=== PATIENT | female | born 1945 | race Caucasian/White ===

== ENCOUNTER 2024-02-05 13:50 | Emergency (ER) | payer OTHER ==
[2024-02-05 13:58] VITALS: BP 162/66; PULSE 74; TEMP 97.7; BMI 30.4
[2024-02-05 15:23] LABS: BASO % 0.5 % (0-2.0); EOS % 2.8 % (0-4.5); HEMOGLOBIN 13.2 GM/dL (10.7-15.3); LYMPH % 24.7 % (8-40); MCH 28.3 pg (25.7-33.7); MEAN CELL VOLUME 85.8 fl (80-96); MEAN PLT VOLUME 8.5 fl (7.5-11.1); MONO % 9.5 % (3.8-10.2); NEUT % 62.5 % (42.8-82.8); PLATELET COUNT 224 10^3/uL (134-434); RBC 4.67 M/mm3 (3.60-5.2); RDW 14.6 % (11.6-15.6); WHITE BLOOD COUNT 6.8 K/mm3 (4.0-10.0)
[2024-02-05 15:25] LABS: PH,URINE 5.5 (5.0-8.0); URINE APPEARANCE CLEAR; URINE BILIRUBIN NEGATIVE (NEGATIVE); URINE COLOR YELLOW; URINE GLUCOSE (UA) NEGATIVE (NEGATIVE); URINE KETONE NEGATIVE (NEGATIVE); URINE LEUK ESTERASE NEGATIVE (NEGATIVE); URINE NITRITE NEGATIVE (NEGATIVE); URINE PROTEIN NEGATIVE (NEGATIVE)
[2024-02-05 15:46] LABS: ALBUMIN 3.5 g/dl (3.4-5.0); BLOOD UREA NITROGEN 14.3 mg/dL (7-18); CALCIUM 8.7 mg/dL (8.5-10.1)
[2024-02-05 15:50] LABS: CREATININE 0.7 mg/dL (0.55-1.3)
[2024-02-05 15:52] LABS: BILIRUBIN,TOTAL 0.5 mg/dL (0.2-1); TOT PROT 7.4 g/dl (6.4-8.2)
[2024-02-05 15:54] LABS: N-TERMINAL BNP 536.6 pg/ml (5-450)
[2024-02-05] MEDS ORDERED: KETOROLAC TROMETHAMINE 30 MG/1 ML VIAL ONE (16:13)
[2024-02-05] MEDS: KETOROLAC TROMETHAMINE 30 MG/1 ML VIAL IVPUSH ONE (16:28)
== END 2024-02-05 17:40 | disposition home or self-care (01) ==
LOC: JER 13:50
PROC: 3E0333Z Introduction of Anti-inflammatory into Peripheral Vein, Percutaneous Approach (ICD-10-PCS; principal; 2024-02-05)
DX: R60.0 Localized edema (principal)
CPT/HCPCS: 36415; 71045-TC-FY; 80053; 81003; 83880; 84484; 85025; 93005; 93010; 99285-25